=== PATIENT | female | born 1935 | race Caucasian/White ===

== ENCOUNTER → 2017-01-31 | Outpatient (CLI) | payer BC ==
[~2017-01-31] MED LIST: AMIO200T4 PO; LSX40 PO; METO50TA16 PO; MGN PO; WARF2.5T8 PO; WARF5TAB7 PO; [UNRECOGNIZED DRUG - OTHER]
--- NOTE | 2017-01-31 13:26 | MAMMOGRAPHY REPORT ---
BILATERAL DIGITAL DIAGNOSTIC MAMMOGRAM TOMOSYNTHESIS WITH CAD: 01/31/2017 CLINICAL HISTORY: History of left breast cancer. The patient reports no current complaints. TECHNIQUE: Breast tomosynthesis in addition to standard 2D mammography was performed. Current study was also evaluated with a Computer Aided Detection (CAD) system. Bilateral CC and MLO 2-D and cristina synthesis images were obtained. COMPARISON: Comparison is made to exams dated: 01/31/2016 mammogram, 01/27/2015 mammogram, 07/19/2014 m ammogram, 01/25/2014 mammogram, 07/23/2013 mammogram, and 01/15/2013 mammogram - [facility]. BREAST COMPOSITION: There are scattered areas of fibroglandular density in both breasts. FINDINGS: There has been no significant interval change compared to prior exams. There are stable post surgical changes in the left medial breast from prior lumpectomy, including stable density, arc hitectural distortion, and coarse dystrophic calcifications at the lumpectomy bed. The remainder of both breasts are also stable compared to prior exams, without suspicious masses, calcifications, or areas of architectural distortion noted. Small cluster of benign-appearing calcifications in the r ight upper outer quadrant is stable compared to prior exams. An oval 7 mm mass is seen within the r ight superior breast on the MLO view which localizes to the skin on the tomosynthesis localizer bar; clinical exam of the breast showed a skin tag on the right upper outer breast which correlates with the mass and is benign. IMPRESSION: ACR BI-RADS CATEGORY 2: BENIGN There is no mammographic evidence of malignancy. A 1 year screening mammogram is recommended. The p atient has been verbally notified of the results. Approximately 10% of breast cancers are not detected with mammography. A negative mammographic repor t should not delay biopsy if a clinically suggestive mass is present. Светлана Irizarry M.D. ah/:01/31/2017 10:41:57 Bariatric Program Coordinator: Portia CARTER(Deborah)(M), [facility] letter sent: Normal 1/2 BI-RADS Code: ACR BI-RADS Category 2: Benign
== END | disposition home or self-care (01) ==
LOC: C.MAMM 10:12
PROVIDERS: ATTEND Surgery
DX: Z12.31 Encounter for screening mammogram for malignant neoplasm of breast (principal); Z85.3 Personal history of malignant neoplasm of breast

== ENCOUNTER → 2018-02-07 | Outpatient (CLI) | payer BC ==
--- NOTE | 2018-02-07 13:53 | MAMMOGRAPHY REPORT ---
BILATERAL DIGITAL DIAGNOSTIC MAMMOGRAM TOMOSYNTHESIS WITH CAD: 02/07/2018 CLINICAL HISTORY: Asymptomatic. Personal history of breast cancer. TECHNIQUE: Breast tomosynthesis in addition to standard 2D mammography was performed. Current study was also evaluated with a Computer Aided Detection (CAD) system. COMPARISON: Comparison is made to exams dated: 01/31/2016 mammogram, 01/27/2015 mammogram, 07/19/2014 ma mmogram, 01/25/2014 mammogram, 01/15/2013 mammogram, and 01/07/2012 mammogram - [facility]. BREAST COMPOSITION: There are scattered areas of fibroglandular density in both breasts. FINDINGS: No suspicious masses, calcifications, or areas of architectural distortion are noted in ei ther breast. There has been no significant interval change compared to prior exams. There are stable post surgical changes in the left medial breast from prior lumpectomy, including stable density, arc hitectural distortion, and coarse dystrophic calcifications at the lumpectomy bed. The remainder of both breasts are also stable compared to prior exams, without suspicious masses, calcifications, or a reas of architectural distortion noted. Small cluster of benign-appearing calcifications in the righ t upper outer quadrant is stable compared to prior exams. IMPRESSION: ACR BI-RADS CATEGORY 2: BENIGN There is no mammographic evidence of malignancy. A 1 year screening mammogram is recommended. The pa tient has been verbally notified of the results. Approximately 10% of breast cancers are not detected with mammography. A negative mammographic report should not delay biopsy if a clinically suggestive mass is present. Светлана Irizarry M.D. ah/:02/07/2018 09:29:38 Chemical Engineering Technician: Rashid CARTER(R)(M), [facility] letter sent: Normal 1/2 BI-RADS Code: ACR BI-RADS Category 2: Benign
== END | disposition home or self-care (01) ==
LOC: C.MAMM 09:01
PROVIDERS: ATTEND Surgery
DX: Z12.31 Encounter for screening mammogram for malignant neoplasm of breast (principal); Z85.3 Personal history of malignant neoplasm of breast